=== PATIENT | male | born 1945 | race Caucasian/White ===

== ENCOUNTER → 2017-11-25 | Outpatient (CLI) | payer MEDICARE ==
--- NOTE | 2017-11-25 13:26 | CT ---
EXAMINATION TYPE: CT pelvis w con DATE OF EXAM: 11/25/2017 COMPARISON: None HISTORY: Prostate cancer CT DLP: 574.8 mGycm Automated exposure control for dose reduction was used. CONTRAST: Performed with IV Contrast, patient injected with 100 mL of Isovue 300. FINDINGS: Oral contrast does not reach distal ileum making evaluation distal bowel suboptimal. There is small b owel feces sign consistent with delayed passage of ingested material 2 colonic level. There is no randa picious small or large bowel dilatation. Amount of fecal material is somewhat prominent in the right colon. Normal-appearing appendix is ascending from cecum. Heterogeneous enlarged prostate gland with calcifications is present, more prominent hyperdensity lef t peripheral zone is seen axial image 59 could reflect area of biopsy-proven neoplasm. No capsular ir regularity or adjacent adenopathy is clearly seen. Right-sided pelvic phleboliths are present axial image 56. Bladder is mildly distended. Slight grade 1 retrolisthesis L5 on S1 is present. There is moderate to advanced disc space narrowing L5-S1 level. No suspicious focal sclerotic lesions are identified. Facet arthropathy lower lumbar sp ine is seen. IMPRESSION: NO SUSPICIOUS MASS OR ADENOPATHY TO SUGGEST METASTATIC DISEASE IS PRESENT.
--- NOTE | 2017-11-25 16:02 | NM ---
EXAMINATION TYPE: NM bone scan whole body DATE OF EXAM: 11/25/2017 COMPARISON: NONE HISTORY: Prostate cancer Delayed whole-body scanning was performed following the injection of 25.6 mCi Tc 99m MDP. Images acq uired 3.25 hours post injection. FINDINGS: There is abnormal uptake involving the anterior sixth rib. Abnormal uptake involving the right knee likely post arthritic. Abnormal uptake involving the shoulders likely post arthritic. No other areas of abnormal increased or reduced uptake. IMPRESSION: 1. Abnormal uptake which appears to be of moderate to severe intensity anterior margin right sixth ri b. This could been the basis of previous fracture rather than metastases. Correlate with rib series.
== END | disposition home or self-care (01) ==
LOC: RADNMMAIN 10:25
PROVIDERS: ATTEND Urology
DX: C61 Malignant neoplasm of prostate (principal); R94.8 Abnormal results of function studies of other organs and systems
CPT/HCPCS: 82565; 84520; 72193; 36415; 78306; A9503; Q9967

== ENCOUNTER → 2017-11-30 | Outpatient (CLI) | payer MEDICARE ==
--- NOTE | 2017-11-30 16:50 | XR ---
EXAMINATION TYPE: XR ribs RT DATE OF EXAM: 11/30/2017 COMPARISON: NONE HISTORY: Prostate cancer TECHNIQUE: 4 views FINDINGS: The right lung is clear of infiltrate. There is no sign of pleural effusion or pneumothorax . I see no rib fracture. IMPRESSION: Negative right rib exam.
== END | disposition home or self-care (01) ==
LOC: RADXRMAIN 16:27
PROVIDERS: ATTEND Urology
DX: C61 Malignant neoplasm of prostate (principal)

== ENCOUNTER → 2017-12-16 | Outpatient (CLI) | payer MEDICARE ==
[2017-12-16 12:26] LABS: Basophils % (A) 1 %; Eosinophils # (A) 0.1 k/uL (0-0.7); Eosinophils % (A) 2 %; HCT 40.3 % (39.0-53.0); HGB 13.3 gm/dL (13.0-17.5); Lymphocytes % (A) 21 %; MCH 32.7 pg (25.0-35.0); MCHC 32.9 g/dL (31.0-37.0); MCV 99.4 fL (80.0-100.0); Mean Platelet Volume 7.7; Monocytes # (A) 0.3 k/uL (0-1.0); Monocytes % (A) 7 %; Neutrophils # (A) 3.2 k/uL (1.3-7.7); Neutrophils % (A) 67 %; Platelet Count 177 k/uL (150-450); RBC 4.05 m/uL (4.30-5.90); RDW 12.7 % (11.5-15.5); WBC 4.8 k/uL (3.8-10.6)
[2017-12-16 13:02] LABS: Anion Gap 7 mmol/L; Blood Urea Nitrogen 19 mg/dL (9-20); Calcium 9.4 mg/dL (8.4-10.2); Carbon Dioxide 28 mmol/L (22-30); Chloride 106 mmol/L (98-107); Glucose 94 mg/dL (74-99); Potassium 4.5 mmol/L (3.5-5.1); Sodium 141 mmol/L (137-145)
== END ==
LOC: LABPAT 10:48
PROVIDERS: ATTEND Urology
DX: Z01.818 Encounter for other preprocedural examination (principal); Z01.812 Encounter for preprocedural laboratory examination; C61 Malignant neoplasm of prostate; R31.0 Gross hematuria; R53.83 Other fatigue
CPT/HCPCS: 80048; 85025; 87086; 93005

== ENCOUNTER 2017-12-23 10:09 | Inpatient (IN) | payer MEDICARE ==
[2017-12-19 11:14] VITALS: BMI 23.1
--- NOTE | 2017-12-21 17:00 | P.GSHP ---
History of Present Illness H&P Date: 12/21/17 Chief Complaint: Prostate cancer The patient is a 72-year-old white male with no family history of prostate cancer. His PSA level bri from 3.8 in 2016 to 9.9 recently. A repeat PSA level was 10.90. KRISTOFER revealed a nodule at the left base. He underwent a prostate ultrasound, revealing a 41 gram prostate with a left-sided hypoechoic lesion. 5 of 6 left-sided biopsies showed Yisel 7/8 adenocarcinoma involving up to 90% of the biopsy. The right-sided biopsies were negative. A computed tomography scan of the pelvis and bone scan showed no metastases. - Genitourinary (Male) Genitourinary: Reports urinary frequency - Psychiatric Psychiatric: Reports insomnia Past Medical History Past Medical History: Cancer History of Any Multi-Drug Resistant Organisms: None Reported Past Surgical History: Hernia Repair Past Anesthesia/Blood Transfusion Reactions: Motion Sickness, Postoperative Nausea & Vomiting (PONV) Smoking Status: Former smoker - Past Family History Mother Family Medical History: No Reported History Medications and Allergies Home Medications Medication Instructions Recorded Confirmed Type Acetaminophen Tab [Tylenol Tab] 650 mg PO Q4H PRN 12/19/17 12/19/17 History Ascorbic Acid [Vitamin C] 500 mg PO DAILY 12/19/17 12/19/17 History Docusate [Colace] 100 mg PO DAILY 12/19/17 12/19/17 History Multivitamin [Men's Multi-Vitamin] 1 each PO DAILY 12/19/17 12/19/17 History Allergies Allergy/AdvReac Type Severity Reaction Status Date / Time No Known Allergies Allergy Verified 12/19/17 10:20 Surgical - Exam - General well developed, well nourished, no distress - Neck no masses, trachea midline - Respiratory normal respiratory effort, clear to auscultation - Cardiovascular Rhythm: regular Abnormal Heart Sounds: no systolic murmur, no diastolic murmur, no rub, no S3 Gallop, no S4 Gallop, no click, no other - Abdomen Abdomen: soft, non tender, no guarding, no rigid, no rebound - Genitourinary normal penis with no external lesions, testicles non-tender - Rectum Rectum: normal sphincter tone, no masses, other (Prostate moderately enlarged, with nodular left base) - Psychiatric oriented to time, oriented to person, oriented to place, speech is normal, memory intact Assessment and Plan (1) Malignant neoplasm of prostate Status: Acute Code(s): C61 - MALIGNANT NEOPLASM OF PROSTATE SNOMED Code(s): 225673716 Plan: I had a lengthy discussion with the patient regarding his prostate cancer. He has elected to undergo a robotic-assisted laparoscopic prostatectomy (RALP) with bilateral pelvic lymphadenectomy. According to nomograms, there is a 33% risk of seminal vesicle invasion and a 39% risk of lymph node involvement. There is an 87% risk of extracapsular extension. The left neurovascular bundle will be widely excised, and though the right neurovascular bundle will be preserved he is aware of the likelihood of postoperative erectile dysfunction. He is aware of the possible need for adjuvant therapy. The planned procedure has been reviewed in detail with him. Potential risks were reviewed, which include anesthesia, bleeding, infection, neurovascular injury, bowel injury, lymphocele, and vesical neck contracture. He is aware of the possible need to convert this to an open procedure. The risk of post-prostatectomy urinary incontinence has been discussed in detail.
[~2017-12-23 10:09] MED LIST: DEXAMETHASONE SOD PHOSPHATE 10 MG/ML 1 ML VIAL IV ONE; HYDROmorphone 0.5 MG/0.5 ML SYRINGE IVP PRN; MIDAZOLAM 2 MG/2 ML VIAL IV PRN; ONDANSETRON 4 MG/2 ML VIAL IVP ONE; SCOPOLAMINE 1.5MG/72HR PATCH TRANSDERM ONE; ceFAZolin IN SWFI 2 GM/20 ML SYRINGE IVP ONE
[2017-12-23] MEDS: LACTATED RINGERS 1,000 ML IV SCH (10:43)
[2017-12-23] MEDS ORDERED: LIDOCAINE 1% INJ 10MG/ML (20 ML MDV) ONE (12:21)
[2017-12-23] MEDS ORDERED: NEOSTIGMINE 1 MG/ML 10 ML VIAL ONE (12:21)
[2017-12-23] MEDS ORDERED: GLYCOPYRROLATE 0.2 MG/ML 2 ML VIAL ONE (12:21)
[2017-12-23] MEDS ORDERED: SUCCINYLCHOLINE CHLORIDE 100 MG/5 ML SYR IV ONE (12:21)
[2017-12-23] MEDS ORDERED: MIDAZOLAM 2 MG/2 ML VIAL ONE (12:21)
[2017-12-23] MEDS ORDERED: ePHEDrine SULFATE/0.9% NACL/PF 50 MG/5 ML SYRINGE IV ONE (12:21)
[2017-12-23] MEDS ORDERED: HYDROmorphone (PF) 1 MG/ML ONE (12:21)
[2017-12-23] MEDS ORDERED: VECURONIUM 10 MG VIAL IV ONE (12:21)
[2017-12-23] MEDS ORDERED: PROPOFOL 10 MG/ML 20 ML VIAL IV ONE (12:21)
[2017-12-23] MEDS ORDERED: fentaNYL (PF) 50 MCG/ML 2 ML AMP ONE (12:21)
[2017-12-23] MEDS ORDERED: BUPIVACAINE (PF) 0.25% 30 ML VIAL SQ ONE ×2 (12:59→16:24)
--- NOTE | 2017-12-23 16:31 | P.OP ---
Date of Procedure: 12/23/17 Preoperative Diagnosis: Adenocarcinoma of the prostate Postoperative Diagnosis: Same Procedure(s) Performed: Right Nerve-Sparing Robotic-assisted Laparoscopic Prostatectomy (RALP) with Bilateral Pelvic Lymphadenectomy Anesthesia: MOLLY Surgeon: Damon Navarro Sales Order Coordinator #1: Orlando Diggs Estimated Blood Loss (ml): 150 IV fluids (ml): 900 Pathology: other (Prostate, seminal vesicles, bilateral pelvic lymph nodes) Condition: stable Disposition: PACU Indications for Procedure: The patient is a 72-year-old white male with no family history of prostate cancer. His PSA level bri from 3.8 in 2016 to 9.9 recently. A repeat PSA level was 10.90. KRISTOFER revealed a nodule at the left base. He underwent a prostate ultrasound, revealing a 41 gram prostate with a left-sided hypoechoic lesion. 5 of 6 left-sided biopsies showed Yisel 7/8 adenocarcinoma involving up to 90% of the biopsy. The right-sided biopsies were negative. A computed tomography scan of the pelvis and bone scan showed no metastases. Operative Findings: No evidence of extraprostatic disease Description of Procedure: The patient was taken in the operating room and placed in the dorsal lithotomy position, with his legs supported in Romain stirrups. He was carefully positioned on a beanbag for stability. The abdomen and external genitalia were prepped and draped sterilely. A Alva catheter was inserted. The Veress needle was passed through the anterior abdominal wall immediately cephalad to the umbilicus, and insufflation was performed to a pressure of 20 mm Hg. Once insufflation was performed, the Veress needle was removed and a supraumbilical incision was made, through which a 12 mm camera port was placed. Under camera guidance, 3 8 mm robotic ports were placed, 2 on the left and one on the right. An additional 12 mm port was placed on the right lateral side for use as an shipping and receiving assistant port. A 5 mm port was placed to the right of the camera port for suction. The patient was placed in Trendelenburg position, and docking was then performed to the da Eliazar system utilizing a 4-arm approach. The abdomen was examined. The sigmoid colon was mobilized out of the pelvis. The peritoneum was incised lateral to the medial umbilical ligaments bilaterally , exposing the pubis. The peritoneum was then incised across the midline, allowing the bladder flap to be taken down. The endopelvic fascia was opened bilaterally, and muscular attachments from the urogenital diaphragm were swept away from the prostate. Extended bilateral pelvic lymphadenectomies were performed in the standard fashion. The peritoneal incisions were extended in a cephalad direction, and the vas deferens were divided bilaterally. Margins of dissection were the bifurcation of the iliac vessels proximally, the circumflex iliac vein distally , the genitofemoral nerve laterally, and the obturator nerve medially. A combination of sharp and blunt dissection was used. Scarring was noted on the left, due to the patient's prior left inguinal hernia repair. Care was taken to avoid any neurovascular injury, and the use of monopolar electrocautery was avoided immediately adjacent to neurovascular structures. The lymphatic package was clipped distally. No enlarged lymph nodes were encountered. There were no complications. The vesical neck was incised transversely, down to the lumen. The Alva catheter was brought out through the anterior vesical neck incision and was used for traction. The posterior aspect of the vesical neck was incised, such that the full-thickness of the vesical neck was divided. The anterior layer of the Denonvilliers fascia was incised, exposing the vas deferens. Each were isolated and divided. Next, each of the seminal vesicles were dissected away from adjacent tissues, and vascular attachments were cauterized and divided. The posterior leaf of Denonvilliers fascia was incised transversely, allowing entry into the plane between the prostate and rectum. With lateral spreading, this plane was developed down to the apex. This exposed the lateral vascular pedicles bilaterally. These were clipped and divided in an antegrade fashion, down to the apex. The use of electrocautery was avoided to prevent thermal damage to the nerves. On the right side, the plane of dissection was immediately adjacent to the prostate to preserve the neurovascular bundle. The left neurovascular bundle was widely excised. The remaining apical attachments were swept away from the prostate. The dorsal venous complex was incised, as well as periurethral tissue. At this point, only the urethra remained intact. This was transected immediately distal to the prostatic apex using cold scissors. The specimen was placed within a specimen bag. The dorsal venous complex was sutured using a V-Loc suture in a running fashion. A second V-Loc suture was then used to place the Roman stitch, incorporating the rhabdosphincter and the edge of Denonvilliers fascia. This allowed the bladder to be taken down to the urethra, leaving the vesical neck immediately adjacent to the urethra. The vesical neck sparing procedure was not performed, and thus the vesical neck was quite large. The vesicourethral anastomosis was performed using a V-Loc suture in a running fashion, with the redundant bladder closed in a tennis racket fashion. After completing the anastomosis, an 18-Kyrgyz Alva catheter was placed and approximately 100 mL of 0.9 normal saline were instilled into the bladder. No extravasation of irrigant from the vesicourethral anastomosis was noted. Hemostasis was noted at this time to be excellent, and it was thus felt that a drain was unnecessary. However, Tisseel was sprayed over the stump of the dorsal vein, the vesicourethral anastomosis, and the vascular pedicles. The patient was returned to the supine position. Undocking was performed, and the specimen bag sutures were passed through the camera port. After removing all the ports and allowing all of the CO2 to be released from the peritoneal cavity, the camera port incision was enlarged to allow removal of the surgical specimen. The fascia of this incision was then closed using 0 Vicryl suture in an interrupted [id number] fashion. Each of the skin incisions were then closed using 4-0 Monocryl suture in a subcuticular fashion. Marcaine was injected at each of the incision sites. Dermabond was applied to each incision. The Alva catheter was connected to gravity drainage. All sponge and needle counts were correct. The patient tolerated the procedure well was taken to the recovery room in stable condition.
[2017-12-23] MEDS ORDERED: ACETAMINOPHEN TAB 325 MG TAB PO PRN (16:54)
[2017-12-23] MEDS ORDERED: HYDROmorphone 1 MG/ML 1 ML SYRINGE IVP PRN (16:54)
[2017-12-23] MEDS ORDERED: LACTATED RINGERS 1,000 ML IV ONE (17:21)
[2017-12-23] MEDS: ONDANSETRON 4 MG/2 ML VIAL IVP PRN (20:32)
[2017-12-23] MEDS: DEXTROSE 5%-0.45% NACL 1,000 ML IV SCH (20:33)
[2017-12-23] MEDS: HEPARIN SODIUM,PORCINE 5,000 UNIT/ML 1 ML VIAL SQ SCH (22:05)
[2017-12-24] MEDS: KETOROLAC 30 MG/ML 1 ML VIAL IVP PRN ×2 (03:31→08:50)
[2017-12-24] MEDS: DEXTROSE 5%-0.45% NACL 1,000 ML IV SCH ×2 (03:32→08:52)
[2017-12-24] MEDS: LACTATED RINGERS 1,000 ML IV SCH (04:42)
[2017-12-24 08:50] VITALS: RESP 16
[2017-12-24] MEDS: HEPARIN SODIUM,PORCINE 5,000 UNIT/ML 1 ML VIAL SQ SCH (08:50)
[2017-12-24] MEDS: ONDANSETRON 4 MG/2 ML VIAL IVP PRN (08:55)
[2017-12-24] MEDS ORDERED: DOCUSATE 100 MG CAP PO SCH (09:00)
--- NOTE | 2017-12-24 10:03 | P.PN ---
Progress Note - Text Progress Note Date: 12/24/17 The patient is one day post RALP for treatment of prostate cancer. He is relatively comfortable. He is afebrile but was noted to have a blood pressure in the 90s this morning when he sat at the side of the bed. His incision appears to be healing well. He has no significant genital edema. Urine output is clear. If the patient's blood pressure is stable and he is not dizzy when ambulatory he will be discharged later in the day.
[2017-12-24 14:41] VITALS: BP 98/59; PULSE 56; TEMP 97.8
--- NOTE | 2017-12-25 10:10 | P.DS ---
Providers Date of admission: 12/23/17 10:09 Expected date of discharge: 12/24/17 Attending physician: Damon Navarro Primary care physician: Arbour-Hri Hospital Course: The patient was recently diagnosed with prostate cancer and elected to be treated with radical prostatectomy. He underwent robotically-assisted laparoscopic prostatectomy on 12/23. He remained relatively comfortable postoperatively and his urine was clear. He was discharged on the first day postop with a Alva catheter in place. Procedures: Robotically-assisted laparoscopic prostatectomy 12/23/2017 Plan - Discharge Summary Discharge Rx Participant: No New Discharge Prescriptions: New Ciprofloxacin HCl [Cipro] 250 mg PO Q12HR #6 tablet Hydrocodone/Acetaminophen [Oxford 5-325] 1 - 2 each PO Q4HR PRN #6 tab PRN Reason: Pain No Action Ascorbic Acid [Vitamin C] 500 mg PO DAILY Multivitamin [Men's Multi-Vitamin] 1 tab PO DAILY Docusate [Colace] 100 mg PO DAILY Acetaminophen Tab [Tylenol Tab] 650 mg PO Q4H PRN PRN Reason: HEADACHE/PAIN Discharge Medication List Acetaminophen Tab [Tylenol Tab] 650 mg PO Q4H PRN 12/19/17 [History] Ascorbic Acid [Vitamin C] 500 mg PO DAILY 12/19/17 [History] Docusate [Colace] 100 mg PO DAILY 12/19/17 [History] Multivitamin [Men's Multi-Vitamin] 1 tab PO DAILY 12/19/17 [History] Ciprofloxacin HCl [Cipro] 250 mg PO Q12HR #6 tablet 12/23/17 [Rx] Hydrocodone/Acetaminophen [Oxford 5-325] 1 - 2 each PO Q4HR PRN #6 tab 12/23/17 [ Rx] Follow up Appointment(s)/Referral(s): Damon Navarro MD [STAFF PHYSICIAN] - 2 Weeks (office closed, please call Tuesday for follow-up appointment) Patient Instructions/Handouts: Alva Catheter Placement and Care (DC), Robot Assisted Laparoscopic Prostatectomy (DC), Urinary Leg Bag (GEN) Activity/Diet/Wound Care/Special Instructions: Diet as tolerated. Drink plenty of fluids. Discharge home with Alva catheter. Okay to shower. No lifting, driving, or strenuous activities. Instruct patient to begin taking ciprofloxacin one day prior to his follow-up appointment. Discharge Disposition: HOME SELF-CARE Pending Studies Pending Results: Pathology report from surgery
--- NOTE | 2017-12-30 20:06 | CDI ---
Documentation Clarification Form Date: 12/30/2017 7:56:45 PM From: CE Garay; Lulu Beaulieu Sausage Machine Operator Phone: If you have a question about this query, please contact Lulu Beaulieu Sausage Machine Operator at [phone] between 8am and 5pm. Admit Date: 12/23/2017 10:09:00 AM Patient Name: Mike Rodas Visit Number: [id number] Discharge Date: 12/24/2017 ATTENTION: The Clinical Documentation Specialists (CDI) and [facility] Coding Staff appreciate your assistance in clarifying documentation. Please respond to the clarification below the line at the bottom and electronically sign. The CDI & [facility] Coding staff will review the response and follow-up if needed. Please note: Queries are made part of the Legal Health Record. If you have any questions, please contact the author of this message via ITS. Damon Rivas MD The final diagnosis of the pathology report states: One lymph node positive for metastatic carcinoma. Documentation states:Lymph node Patient history/risk factors: Prostate adenocarcinoma. Clinical Indicators: Elevated PSA, urinary frequency Treatment: Prostatectomy In your professional opinion, do you agree with the pathology report specifying lymph node as metastatic carcinoma? Yes No Other (please specify) Unable to determine Yes MTDD
== END 2017-12-24 16:17 | disposition home or self-care (01) | DRG 707 ==
LOC: 2ORMAIN 10:09 → 4SSUR 16:42
PROVIDERS: ADMIT Urology; ATTEND Urology
PROC: 8E0W4CZ Robotic Assisted Procedure of Trunk Region, Percutaneous Endoscopic Approach (ICD-10-PCS; principal; 2017-12-23 11:25)
PROC: 0VT04ZZ Resection of Prostate, Percutaneous Endoscopic Approach (ICD-10-PCS; principal; 2017-12-23 11:25)
PROC: 07BC4ZX Excision of Pelvis Lymphatic, Percutaneous Endoscopic Approach, Diagnostic (ICD-10-PCS; principal; 2017-12-23 11:25)
DX: C61 Malignant neoplasm of prostate (principal); C77.5 Secondary and unspecified malignant neoplasm of intrapelvic lymph nodes; G47.00 Insomnia, unspecified; Z87.891 Personal history of nicotine dependence; R35.0 Frequency of micturition
CPT/HCPCS: 88305; 88307; 88309

== ENCOUNTER → 2018-02-09 | Outpatient (CLI) | payer MEDICARE | LOC: LABWHC1 15:25 | PROVIDERS: ATTEND Urology | DX: C61 Malignant neoplasm of prostate (principal) | CPT/HCPCS: 36415; 84153 ==

== ENCOUNTER → 2018-05-22 | Outpatient (CLI) | payer MEDICARE | END | disposition home or self-care (01) | LOC: LABWHC1 10:19 | PROVIDERS: ATTEND Urology | DX: C61 Malignant neoplasm of prostate (principal) | CPT/HCPCS: 36415; 84153; 84403 ==

== ENCOUNTER → 2018-06-05 | Outpatient (CLI) | payer MEDICARE | LOC: LABWHC1 09:56 | PROVIDERS: ATTEND Ophthalmology | DX: G45.3 Amaurosis fugax (principal) | CPT/HCPCS: 36415; 85652; 86140 ==

== ENCOUNTER 2018-07-19 08:58 | Day surgery (SDC) | payer MEDICARE ==
[2018-07-14 13:44] VITALS: BMI 24.3
[~2018-07-19 08:58] MED LIST changes: -DEXAMETHASONE SOD PHOSPHATE 10 MG/ML 1 ML VIAL IV ONE; -HYDROmorphone 0.5 MG/0.5 ML SYRINGE IVP PRN; +LACTATED RINGERS 1,000 ML IV SCH; -MIDAZOLAM 2 MG/2 ML VIAL IV PRN; -ONDANSETRON 4 MG/2 ML VIAL IVP ONE; -SCOPOLAMINE 1.5MG/72HR PATCH TRANSDERM ONE; -ceFAZolin IN SWFI 2 GM/20 ML SYRINGE IVP ONE
[2018-07-19 09:22] VITALS: TEMP 97.8
[2018-07-19] MEDS ORDERED: LIDOCAINE 1% 20 ML VIAL (10MG/ML) FOR IV START INTRADERMA ONE (09:28)
--- NOTE | 2018-07-19 09:46 | P.GSHP ---
History of Present Illness H&P Date: 07/19/18 CHIEF COMPLAINT: Colon screen HISTORY OF PRESENT ILLNESS: The patient is a 73-year-old male who presents for colon screen. Lower endoscopy was offered for further evaluation and management. PAST MEDICAL HISTORY: Please see list. PAST SURGICAL HISTORY: Please see list. MEDICATIONS: Please see list. ALLERGIES: Please see list. SOCIAL HISTORY: No illicit drug use FAMILY HISTORY: No reports of Crohn disease or ulcerative colitis. REVIEW OF ORGAN SYSTEMS: CONSTITUTIONAL: No reports of fevers or chills. PHYSICAL EXAM: VITAL SIGNS: Stable GENERAL: Well-developed pleasant in no acute distress. HEENT: No scleral icterus. Extraocular movements grossly intact. Moist buccal mucosa. NECK: Supple without lymphadenopathy. CHEST: Unlabored respirations. Equal bilateral excursions. CARDIOVASCULAR: Regular rate and rhythm. Distal 2+ pulses. ABDOMEN: Soft, nontender, nondistended. MUSCULOSKELETAL: No clubbing, cyanosis, or edema. ASSESSMENT: 1. Colon screen. PLAN: 1. Recommend proceeding with a lower endoscopy Past Medical History Past Medical History: Cancer, Prostate Disorder Additional Past Medical History / Comment(s): blood in stool, prostate cancer History of Any Multi-Drug Resistant Organisms: None Reported Past Surgical History: Hernia Repair, Prostate Surgery Past Anesthesia/Blood Transfusion Reactions: Postoperative Nausea & Vomiting (PONV) Smoking Status: Former smoker - Past Family History Mother Family Medical History: No Reported History Medications and Allergies Home Medications Medication Instructions Recorded Confirmed Type Ascorbic Acid [Vitamin C] 500 mg PO DAILY 12/19/17 07/19/18 History Multivitamin [Men's Multi-Vitamin] 1 tab PO DAILY 12/19/17 07/19/18 History Calcium Carbonate [Calcium] 600 mg PO BID 07/14/18 07/19/18 History Allergies Allergy/AdvReac Type Severity Reaction Status Date / Time No Known Allergies Allergy Verified 07/19/18 09:15 Surgical - Exam Vital Signs Temp Pulse Resp BP Pulse Ox 97.8 F 60 16 128/69 96 07/19/18 09:21 07/19/18 09:21 07/19/18 09:21 07/19/18 09:21 07/19/18 09:21
[2018-07-19] MEDS ORDERED: PROPOFOL 10 MG/ML 20 ML VIAL IV ONE (09:47)
--- NOTE | 2018-07-19 10:21 | P.PCN ---
Date of Procedure: 07/19/18 Description of Procedure: PREOPERATIVE DIAGNOSIS: Colonoscopy screening POSTOPERATIVE DIAGNOSIS: Colonoscopy screening Multiple colon polyps. Internal hemorrhoids, grade 2 External hemorrhoids, grade 2 OPERATION: Colonoscopy to the ileocecal valve and appendiceal orifice. Colonoscopy with hot snare polypectomy Colonoscopy with multiple cold forceps biopsies. SURGEON: Preeti Lora MD. ANESTHESIA: MAC. INDICATIONS: The patient is a 73-year-old male who presents for colonoscopy screening. Last colonoscopy 10 years ago. Benefits and risks were described and informed consent was obtained. DESCRIPTION OF PROCEDURE: The patient had undergone Gatorade, MiraLAX and Dulcolax prep. He had been brought into the operating room and laid in the left lateral decubitus position. The prostate was smooth and without abnormalities. After adequate intravenous sedation, the rectum was examined with 2% lidocaine jelly. External hemorrhoids were encountered. The rectal tone was within normal limits. No lesions were palpated in the rectal vault. An Olympus colonoscope was advanced until the ileocecal valve and appendiceal orifice were clearly viewed. The prep was fair with visualization of the mucosal folds. The scope was removed with visualization of each mucosal fold. No scattered diverticulosis was encountered. Multiple colonic polyps were found and cold forcep biopsy or snare polypectomy. No evidence of focal colitis was found. Retroflexion of the scope demonstrated grade 2 internal hemorrhoids without active bleeding or inflammation. The colon was desufflated. The patient had tolerated the procedure well. Withdrawal time was over 6 minutes. FINDINGS: Aronchick preparation quality scale 1 (1-5) Internal hemorrhoids, grade 2 External hemorrhoids, grade 2. No arteriovenous malformations. Removal of 3 polyps: - Snare polypectomy 15 cm from the anal verge, 5 mm tubulovillous adenoma polyp, rectum - Cold forceps biopsy at 20 cm from the anal verge, 4 mm polyp, sigmoid colon - Cold forceps biopsy at 25 cm from the anal verge, 4 mm polyp, sigmoid colon No focal colitis. RECOMMENDATIONS: Repeat colonoscopy 5 years, 2023 Plan - Discharge Summary New Discharge Prescriptions: No Action Ascorbic Acid [Vitamin C] 500 mg PO DAILY Multivitamin [Men's Multi-Vitamin] 1 tab PO DAILY Calcium Carbonate [Calcium] 600 mg PO BID Discharge Medication List Ascorbic Acid [Vitamin C] 500 mg PO DAILY 12/19/17 [History] Multivitamin [Men's Multi-Vitamin] 1 tab PO DAILY 12/19/17 [History] Calcium Carbonate [Calcium] 600 mg PO BID 07/14/18 [History] Follow up Appointment(s)/Referral(s): Preeti Lora MD [STAFF PHYSICIAN] - 07/25/18 Patient Instructions/Handouts: Hemorrhoids (DC), Colorectal Polyps (DC) Activity/Diet/Wound Care/Special Instructions: Repeat colonoscopy in 5 years, 2023 Discharge Disposition: HOME SELF-CARE
[2018-07-19 10:43] VITALS: BP 110/65; PULSE 54; RESP 18
== END 2018-07-19 11:16 | disposition home or self-care (01) ==
LOC: ORWHC2ENDO 08:58
PROVIDERS: ATTEND Surgery Plastic and Reconstructive Surgery
DX: Z12.11 Encounter for screening for malignant neoplasm of colon (principal); K63.5 Polyp of colon; K64.4 Residual hemorrhoidal skin tags; K64.8 Other hemorrhoids; Z85.46 Personal history of malignant neoplasm of prostate; Z87.891 Personal history of nicotine dependence
CPT/HCPCS: 88305; 45380; 45385; J2704

== ENCOUNTER → 2018-08-14 | Outpatient (CLI) | payer MEDICARE | END | disposition home or self-care (01) | LOC: LABWHC1 12:26 | PROVIDERS: ATTEND Urology | DX: C61 Malignant neoplasm of prostate (principal) | CPT/HCPCS: 36415; 84153; 84403 ==

== ENCOUNTER → 2018-09-28 | Outpatient (CLI) | payer MEDICARE ==
--- NOTE | 2018-09-28 14:44 | CT ---
EXAMINATION TYPE: CT chest wo con DATE OF EXAM: 09/28/2018 COMPARISON: None HISTORY: Cough and Wheezing CT DLP: 263.10 mGycm. Automated Exposure Control for Dose Reduction was Utilized. TECHNIQUE: CT scan of the thorax is performed without IV contrast. FINDINGS: LUNGS: Large masslike consolidation seen in the left lower lobe anteriorly and laterally measuring 6. 7 x 5.4 x 6.8 cm in AP by transverse by craniocaudad dimension. Small area of central cavitation jaelyn uring up to 1.4 cm. There is surrounding groundglass attenuation throughout the left lower lobe paren chyma. Otherwise, the remaining lobes are clear. No evidence of pleural effusion. No pneumothorax. MEDIASTINUM: Lack of IV contrast is noted to limit evaluation for mediastinal and especially hilar ad enopathy. There are no definitive greater than 1 cm hilar or mediastinal lymph nodes, but there is le ft hilar prominence. No cardiomegaly or pericardial effusion is seen. Ascending thoracic aorta is e nlarged measuring up to 4.6 cm. OTHER: Low-attenuation liver lesion in the left hepatic lobe. IMPRESSION: Left lower lobe cavitary masslike consolidation with surrounding pneumonitis. Findings may be on the basis of pulmonary malignancy versus pneumonia. Correlation with patient WBC is recommended. Follow-u p until resolution. Ascending thoracic aortic aneurysm.
== END | disposition home or self-care (01) ==
LOC: RADCTMAIN 13:37
PROVIDERS: ATTEND Internal Medicine Pulmonary Disease
DX: C61 Malignant neoplasm of prostate (principal); I71.2 Thoracic aortic aneurysm, without rupture; R91.8 Other nonspecific abnormal finding of lung field
CPT/HCPCS: 71250

== ENCOUNTER → 2018-10-14 | Outpatient (CLI) | payer MEDICARE ==
--- NOTE | 2018-10-16 09:40 | PE ---
EXAMINATION TYPE: PET CT fusion skull to thigh DATE OF EXAM: 10/14/2018 COMPARISON: CT dated 09/28/2018 and nuclear medicine bone scan dated 11/25/2017 HISTORY: Left sided lung cancer with recent lung biopsy on 10/05/2018. No prior chemotherapy or radiat ion for the lung cancer. History includes prostate cancer with abnormal uptake of the anterior margin of the right sixth rib on prior nuclear medicine bone scan dated 11/25/2017 pelvis favored to repres ent prior fracture versus less likely metastasis. TECHNIQUE: Following the intravenous administration of 11.497 mCi of F-18 FDG, whole body images are performed from the skull base to the midthigh. Images are reviewed on the computer in the coronal, axial, and sagittal planes. Reconstructed rotating images are created on independent workstation and reviewed on the computer. A localization and attenuation correction CT is performed in conjunction with the PET scan. SCAN: Initial strategy FINDINGS: Mediastinal background: 2.29 Abdominal background: 3.22 SKULL BASE AND NECK: No suspicious hypermetabolic uptake. CHEST, MEDIASTINUM, AND HILAR REGION: There is marked hypermetabolic uptake of the cavitary left lowe r lobe mass measuring approximately 6.7 x 4.4 x 6.8 cm as seen on the prior exam. This has a maximum SUV of 23.91. Groundglass attenuation surrounds the cavitary mass involving the entirety of the left lower lobe other than relative sparing of the superior segment. Scattered areas of subsegmental atele ctasis are seen on the right. Prominent but nonenlarged precarinal lymph node measures 8 mm in short axis and is not hypermetabolic. No other borderline lymph nodes are seen nor enlarged lymph nodes or hypermetabolic lymph nodes. There is a slightly enlarged aorticopulmonary window lymph node that measures 1.2 cm on series 3 imag e 89 and has a maximum SUV similar to mediastinal background of 2.25, just below the seminal backgrou nd. ABDOMEN AND PELVIS: Incidentally noted amorphous density within the right gluteal subcutaneous tissue s has a maximum SUV of 2.15, below abdominal background and may represent site of subcutaneous inject ion or recent injury. This is seen on series 2 image 221. No suspicious uptake is seen within the abd omen. Hypoattenuated hepatic lesion of the left lobe has a maximum SUV of 2.83, below mediastinal leti kground and is favored to represent a benign lesion such as a cyst. OSSEOUS STRUCTURES: No suspicious hypermetabolic uptake. OTHER CT: There is redemonstration of aneurysmal dilatation of the thoracic aorta as the ascending th oracic aorta measures approximately 4.6 cm. Moderate to severe coronary artery calcifications are see n. Scleral calcifications are incidentally noted. Paranasal sinuses and mastoid air cells appear well aerated. No pericardial effusion. Small hiatal hernia is seen. Old fracture deformity is noted of th e anterior right sixth rib although subtle. Mild to moderate degenerative changes of the spine and hi ps. Cecum is noted to be low-lying within the pelvis. Moderate atheromatous changes of the thoracic a nd abdominal aorta and their branches. Hypoattenuated hepatic lesion on series 3 image 132 years 1.2 cm and has attenuation of a simple cyst. This is hypometabolic and again favored to represent a benig n cyst although incompletely evaluated without contrast. IMPRESSION: 1. Left lower lobe cavitary mass with continued evidence of surrounding pneumonitis involving nearly the entirety of the left lower lobe is most compatible with cavitary malignant neoplasm as this demon strates a maximum SUV of 23.91. 2. No current pathologic mediastinal adenopathy with only a solitary borderline mediastinal lymph nod e that is mildly enlarged having an SUV just below the seminal background (aortic window node measuri ng 1.2 cm in short axis). 3. No findings to suspect infradiaphragmatic metastasis or supraclavicular metastasis. No contralater al adenopathy, no pleural effusion, and no additional 0.4. Redemonstration of aneurysmal dilatation o f the ascending thoracic aorta measuring 4.6 cm. 4. Hypometabolic 1.2 cm left hepatic lobe lesion highly favored to represent a benign cyst. Suspiciou s pulmonary nodules.
== END | disposition home or self-care (01) ==
LOC: RADPETMAIN 08:25
PROVIDERS: ATTEND Internal Medicine Pulmonary Disease
DX: J18.9 Pneumonia, unspecified organism (principal); I71.2 Thoracic aortic aneurysm, without rupture; K76.89 Other specified diseases of liver
CPT/HCPCS: 78815; A9552

== ENCOUNTER → 2018-10-30 | Outpatient (CLI) | payer MEDICARE ==
--- NOTE | 2018-10-30 22:18 | MR ---
EXAMINATION TYPE: MR brain wo/w con DATE OF EXAM: 10/30/2018 COMPARISON: Correlation PET CT 10/14/2018 HISTORY: 73-year-old male Headaches, Lung ca Sep 2018 TECHNIQUE: Multiplanar, multisequence images of the brain and brainstem were acquired before and aft er administration of 7.5 mL IV Gadavist. Diffusion weighted imaging is performed. FINDINGS: Some focal susceptibility artifact along the right lateral convexity, possible intracranial pressure monitor or some metallic foreign body material. Clinically correlate. No evidence for acute infarction, hemorrhage, mass, mass effect, midline shift, herniation, effacemen t of basal cisterns, or extra-axial fluid collection. The ventricles and sulci are age-appropriate. Major intracranial flow voids are intact. There is a dominant left vertebral artery. T2/FLAIR weighted sequences show minimal burden of bright white matter change in the subcortical charlie ons of both cerebral hemispheres. Nonspecific findings likely representing mild changes of chronic sm all vessel ischemic disease. Midline structures demonstrate normal morphology. The craniocervical junction is normal. Post contrast images demonstrate no evidence of pathologic enhancement. Dural venous sinuses are pat ent. Scattered mild mucosal thickening ethmoid air cells. Globes are intact. IMPRESSION: 1. Focal susceptibility artifact along the right lateral convexity could represent some type of metal lic device or foreign body. Clinically correlate. 2. No acute intracranial abnormality seen. No enhancing intracranial lesions. 3. Mild scattered burden of T2 bright white matter change could reflect chronic small vessel ischemic disease or changes related to chronic migraines in the appropriate clinical setting.
== END | disposition home or self-care (01) ==
LOC: RADMRIMAIN 12:08
PROVIDERS: ATTEND Internal Medicine Hematology & Oncology
DX: C34.32 Malignant neoplasm of lower lobe, left bronchus or lung (principal); R90.89 Other abnormal findings on diagnostic imaging of central nervous system; R51 Headache
CPT/HCPCS: 70553; A9585

== ENCOUNTER → 2018-11-17 | Outpatient (CLI) | payer MEDICARE | END | disposition home or self-care (01) | LOC: LABWHC1 13:54 | PROVIDERS: ATTEND Urology | DX: C61 Malignant neoplasm of prostate (principal) | CPT/HCPCS: 36415; 84153 ==

== ENCOUNTER → 2019-02-13 | Outpatient (CLI) | payer MEDICARE ==
--- NOTE | 2019-02-13 11:55 | CT ---
EXAMINATION TYPE: CT ChestAbdPelvis w con DATE OF EXAM: 02/13/2019 COMPARISON: PET CT October 14, 2018 HISTORY: Malignant neoplasm of lower lobe, left lung (lobectomy) CT DLP: 820.7 mGycm. Automated Exposure Control for Dose Reduction was Utilized. CONTRAST: CT scan of the thorax, abdomen and pelvis is performed with IV Contrast, patient injected with 80 mL of Isovue 300. FINDINGS: LUNGS: There is left lower lobe partial pneumonectomy changes with surgical sutures and left-sided vo lume loss along with posterior left basilar linear scarring. There is small left pleural fluid collec tion immediately. No new nodules or masses. Slight hyperexpansion to right long. MEDIASTINUM: There are no greater than 1 cm hilar or mediastinal lymph nodes. Surgical clips left hil ar level. No cardiomegaly or pericardial effusion is seen. Coronary artery calcification is redemon strated which is noted marked of underlying coronary artery disease. Ascending aorta measures up to 4 .2 cm in diameter image 28. No significant change from prior. LIVER/GB: Stable roughly 1 cm hypodense lesion left hepatic lobe presumed benign simple thin-walled c yst axial image 52. PANCREAS: No significant abnormality is seen. SPLEEN: No significant abnormality is seen. ADRENALS: No significant abnormality is seen. KIDNEYS: No significant abnormality is seen. BOWEL: No significant abnormality is seen. GENITAL ORGANS: Prostate is not visualized and may be surgically absent. Scattered pelvic phleboliths . LYMPH NODES: No greater than 1cm abdominal or pelvic lymph nodes are appreciated. OSSEOUS STRUCTURES: Slight grade 1 retrolisthesis L5 on S1. Moderate disc space narrowing L5-S1 level . OTHER: No significant additional abnormality is seen. IMPRESSION: Interval successful treatment of left lung neoplasm. No new suspicious mass or adenopathy to suggest neoplastic recurrence.
== END | disposition home or self-care (01) ==
LOC: RADCTMAIN 09:37
PROVIDERS: ATTEND Internal Medicine Hematology & Oncology
DX: C34.32 Malignant neoplasm of lower lobe, left bronchus or lung (principal)
CPT/HCPCS: 36415; 71260; 74177; 82565; 84520

== ENCOUNTER → 2019-06-05 | Outpatient (CLI) | payer MEDICARE ==
[2019-06-05 12:48] LABS: African American GFR (CKD) >90 (>60 ml/min/1.73 sqM); Blood Urea Nitrogen 14 mg/dL (9-20); Non-African American GFR(CKD) 83 (>60 ml/min/1.73 sqM)
--- NOTE | 2019-06-06 19:03 | CT ---
EXAMINATION TYPE: CT ChestAbdPelvis w con DATE OF EXAM: 06/05/2019 COMPARISON: 02/13/19 CT chest, abdomen and pelvis and PET CT dated 10/14/18 HISTORY: lung cancer follow up . Partial pneumonectomy of the left lower lobectomy. CT DLP: 770.2 mGycm. Automated Exposure Control for Dose Reduction was Utilized. CONTRAST: CT scan of the thorax, abdomen and pelvis is performed with IV Contrast, patient injected with 100 mL of Isovue 300. The entirety of the pelvis is not imaged. The patient could be brought back for addit ional images. FINDINGS: LUNGS: The lungs are grossly clear, there is no concerning parenchymal mass or nodule identified. Linda ear pleural-parenchymal scarring is seen at the left lung base. Pleural thickening has decreased in c aliber in comparison to the prior measuring up to 1.0 cm and previously measuring up to 2.2 cm. Redem onstration of compensatory hyperinflation of the right lung and slight leftward mediastinal shift sec ondary to left-sided volume loss. There is no pleural effusion or pneumothorax seen. The tracheobron chial tree is patent. MEDIASTINUM: There are no greater than 1 cm hilar or mediastinal lymph nodes. Moderate to severe cor onary artery calcifications of the left anterior descending coronary artery are seen. The ascending t horacic aorta is again aneurysmal measuring 4.3 cm. This is stable from the prior. No pericardial eff usion is seen. LIVER/GB: Hepatic parenchyma is diffusely hypoattenuated in comparison to that of the spleen, most co mmonly seen in hepatic steatosis. This finding limits evaluation for hepatic masses. No intrahepatic biliary ductal dilatation. Thin-walled probable hepatic cysts again measures approximately 1.0 cm and the left hepatic lobe on image 52. No radiopaque calculi in the gallbladder on CT. PANCREAS: Slight bulbous contour of the pancreas is stable and presumably congenital. SPLEEN: No splenomegaly. ADRENALS: No new nodules or thickening. KIDNEYS: 1.1 cm right lower pole exophytic benign renal cyst is seen. No hydronephrosis or nephrolith iasis of either kidney. BOWEL: No dilated large or small bowel is seen. LYMPH NODES: No greater than 1cm abdominal or pelvic lymph nodes are appreciated. OSSEOUS STRUCTURES: Slight retrolisthesis is redemonstrated of L5 on S1 with degenerative disc diseas e of the thoracic and lumbar spine. IMPRESSION: Imaging was only performed to the aortoiliac bifurcation and the low pelvis was not inclu ded in the images submitted. The patient could be brought back for additional images added to this ex amination at the inferior margin of the pelvis is of clinical interest. In the visualized portions of the chest, abdomen, and pelvis no new evidence of visceral or osseous metastasis is seen. No new chrissie nopathy.
== END | disposition home or self-care (01) ==
LOC: RADCTMAIN 11:26
PROVIDERS: ATTEND Internal Medicine Hematology & Oncology
DX: C34.32 Malignant neoplasm of lower lobe, left bronchus or lung (principal)
CPT/HCPCS: 82565; 84520; 71260; 74177; 36415; Q9967

== ENCOUNTER → 2019-08-15 | Outpatient (CLI) | payer MEDICARE | END | disposition home or self-care (01) | LOC: LABWHC1 10:32 | PROVIDERS: ATTEND Urology | DX: C61 Malignant neoplasm of prostate (principal) | CPT/HCPCS: 36415; 84153; 84403 ==

== ENCOUNTER → 2019-09-11 | Outpatient (CLI) | payer MEDICARE ==
--- NOTE | 2019-09-11 15:02 | CT ---
EXAMINATION TYPE: CT ChestAbdPelvis w con DATE OF EXAM: 09/11/2019 COMPARISON: Prior CT 06/05/2019 HISTORY: follow up lung and prostate cancer CT DLP: 1496 mGycm Automated exposure control for dose reduction was used. CONTRAST: CT scan of the chest, abdomen and pelvis is performed with Oral Contrast and with IV Contrast, patien t injected with 100 mL of Isovue 300. FINDINGS: LUNGS: The lungs are grossly clear, there is no concerning parenchymal mass or nodule identified. T here is no pleural effusion or pneumothorax seen. The tracheobronchial tree is patent. There are sta ble postop changes. There is volume loss in the left hemithorax. MEDIASTINUM: There are no greater than 1 cm hilar or mediastinal lymph nodes. No pericardial effusi on is seen. There are dense coronary artery calcifications. AORTA: Root of the aorta measures approximately 4.1 cm, ascending aorta is 4.2 cm, proximal descendi ng aorta 3.6 cm. OTHER: No additional significant abnormality is seen. LIVER/GB: No significant interval change is appreciated. PANCREAS: No significant abnormality is seen. SPLEEN: No significant abnormality is seen. ADRENALS: No significant abnormality is seen. KIDNEYS: No significant interval change is seen. REPRODUCTIVE ORGANS: Prostate is not seen, correlate for prostatectomy BOWEL: No significant abnormality is seen. FREE AIR: No Free Air visible. ASCITES: None seen. RETROPERITONEAL ADENOPATHY: No retroperitoneal adenopathy is seen. LYMPH NODES: No greater than 1 cm abdominal or pelvic lymph nodes are appreciated. URINARY BLADDER: No significant abnormality is seen. PELVIC ADENOPATHY: None visualized. OSSEOUS STRUCTURES: No significant abnormality is seen. IMPRESSION: Stable exam, there is no suspicious abnormality evident. Aortic aneurysm shows a stable a ppearance. Postop changes.
== END ==
LOC: RADCTMAIN 11:47
PROVIDERS: ATTEND Internal Medicine Hematology & Oncology
DX: C34.32 Malignant neoplasm of lower lobe, left bronchus or lung (principal); I71.9 Aortic aneurysm of unspecified site, without rupture; Z98.890 Other specified postprocedural states
CPT/HCPCS: 82565; 84520; 71260; 74177; 36415; Q9967

== ENCOUNTER → 2019-12-07 | Outpatient (CLI) | payer MEDICARE ==
--- NOTE | 2019-12-07 13:32 | CT ---
EXAMINATION TYPE: CT ChestAbdPelvis w con DATE OF EXAM: 12/07/2019 COMPARISON: CT 09/11/2019 HISTORY: Prostate and lung cancer CT DLP: 947.9 mGycm Automated exposure control for dose reduction was used. CONTRAST: CT scan of the chest, abdomen and pelvis is performed with Oral Contrast and with IV Contrast, patien t injected with 100 mL of Isovue 300. FINDINGS: LUNGS: Postop changes with volume loss in the left hemithorax again noted MEDIASTINUM: There are no greater than 1 cm hilar or mediastinal lymph nodes. There are coronary nika ry calcifications. No pericardial effusion is seen. AORTA: Nerve root is borderline enlarged at 4 cm. OTHER: No additional significant abnormality is seen. LIVER/GB: No significant interval change is appreciated. PANCREAS: No significant abnormality is seen. SPLEEN: No significant abnormality is seen. ADRENALS: No significant abnormality is seen. KIDNEYS: No significant abnormality is seen. REPRODUCTIVE ORGANS: No gross abnormality seen. BOWEL: No significant abnormality is seen. FREE AIR: No Free Air visible. ASCITES: None seen. RETROPERITONEAL ADENOPATHY: No retroperitoneal adenopathy is seen. LYMPH NODES: No greater than 1 cm abdominal or pelvic lymph nodes are appreciated. URINARY BLADDER: No significant abnormality is seen. PELVIC ADENOPATHY: None visualized. OSSEOUS STRUCTURES: Degenerative disc change present in the lumbar spine. There is facet arthropathy , anterolisthesis grade 1 L4-51. IMPRESSION: Aortic aneurysm. No significant change.
== END | disposition home or self-care (01) ==
LOC: RADCTMAIN 10:22
PROVIDERS: ATTEND Internal Medicine Hematology & Oncology
DX: C34.32 Malignant neoplasm of lower lobe, left bronchus or lung (principal); I71.9 Aortic aneurysm of unspecified site, without rupture
CPT/HCPCS: 82565; 84520; 71260; 74177; 36415; Q9967

== ENCOUNTER → 2020-04-09 | Outpatient (CLI) | payer MEDICARE ==
--- NOTE | 2020-04-09 12:48 | CT ---
EXAMINATION TYPE: CT ChestAbdPelvis w con DATE OF EXAM: 04/09/2020 COMPARISON: 12/07/2019 HISTORY: Lung and prostate cancer-different cancers CT DLP: 1498 mGycm Automated exposure control for dose reduction was used. CONTRAST: CT scan of the chest, abdomen and pelvis is performed with Oral Contrast and with IV Contrast, patien t injected with 100 mL of Isovue 300. FINDINGS: LUNGS: Basilar subsegmental atelectasis at the left lung base favored over infiltrate. No sizable pul monary nodule. No pleural effusion or pneumothorax.. MEDIASTINUM: Mild aneurysmal dilation of the ascending aorta measuring 4.3 cm and previously measurin g 4.2 cm. Coronary artery calcification noted. OTHER: No additional significant abnormality is seen. LIVER/GB: Stable hypodensity within the left lobe the liver too small to characterize but likely rela beulah to cyst. PANCREAS: No significant abnormality is seen. SPLEEN: No significant abnormality is seen. ADRENALS: No significant abnormality is seen. KIDNEYS: Small exophytic lesion extending off the lower pole of the right kidney measuring approximat feliberto 5 Hounsfield units compatible with simple cyst and stable from previous.. BOWEL: No significant abnormality is seen. LYMPH NODES: No greater than 1 cm abdominal or pelvic lymph nodes are appreciated. OSSEOUS STRUCTURES: Hypertrophic and degenerative changes spine with grade 1 anterolisthesis L4 on L5 . Multilevel degenerative disc disease. PELVIS: Bladder distends normally. No wall thickening. No free fluid or adenopathy. OTHER: Aorta of normal caliber. IMPRESSION: 1. Stable CT scan demonstrating no evidence of metastases. 2. Ascending aortic aneurysm measuring 4.3 cm and producing measuring 4.2 cm..
== END | disposition home or self-care (01) ==
LOC: RADCTMAIN 10:31
PROVIDERS: ATTEND Internal Medicine Hematology & Oncology
DX: I71.2 Thoracic aortic aneurysm, without rupture (principal); C34.32 Malignant neoplasm of lower lobe, left bronchus or lung
CPT/HCPCS: 82565; 84520; 71260; 74177; 36415; Q9967 ×2

== ENCOUNTER → 2020-05-16 | Outpatient (CLI) | payer MEDICARE ==
[2020-05-16 23:29] LABS: Prostate Specific Antigen <0.1 ng/mL (0.0-6.5)
== END | disposition home or self-care (01) ==
LOC: LABWHC1 13:16
PROVIDERS: ATTEND Urology
DX: C61 Malignant neoplasm of prostate (principal)
CPT/HCPCS: 36415; 84153; 84403

== ENCOUNTER → 2020-08-08 | Outpatient (CLI) | payer MEDICARE ==
--- NOTE | 2020-08-08 13:14 | CT ---
EXAMINATION TYPE: CT ChestAbdPelvis w con DATE OF EXAM: 08/08/2020 INDICATION: Lung cancer COMPARISON: 04/09/2020 CT DLP: 1537 mGycm CONTRAST: Performed with Oral Contrast and with IV Contrast, patient injected with 100 ml mL of Isovue 300. TECHNIQUE: Axial images at 5 mm thick sections. Reconstructed images in the coronal plane. Delayed images through the kidneys. FINDINGS: CT CHEST: Portion of the thyroid visualized is normal. No suspicious lung nodules or focal infiltrates are present. No enlarged mediastinal or hilar adenopathy is evident. The ascending aorta diameter at the level of the main pulmonary artery is 4.4 cm. The main pulmonary artery diameter at the bifurcation is 2.7 cm. Coronary artery calcifications present. CT ABDOMEN: Liver: Normal Spleen: Normal Pancreas: Normal Adrenal glands: The adrenal glands are normal. Gallbladder: Normal Kidneys: No masses are evident. No hydronephrosis is present. No cysts are present. Delayed images were obtained through the kidneys, which remain unremarkable. Aorta: Vascular calcification is within the aorta. Inferior vena cava: Normal. CT PELVIS: Loops of bowel within the abdomen and pelvis are normal. There are loops of bowel which are incom pletely distended or lack oral contrast limiting their evaluation. Appendix: Normal as visualized. Urinary bladder: Normal. Genitourinary structures: Prostate is not identified. Osseous structures: No suspicious lytic or sclerotic lesions. Facet degenerative changes are present. IMPRESSIONS: 1. Ascending thoracic aortic aneurysm measuring 4.4 cm this may be 2 mm more than comparison. 2. No suspicious change to suggest recurrent or metastatic lung cancer.
== END | disposition home or self-care (01) ==
LOC: RADCTMAIN 10:22
PROVIDERS: ATTEND Internal Medicine Hematology & Oncology
DX: C34.32 Malignant neoplasm of lower lobe, left bronchus or lung (principal); I71.2 Thoracic aortic aneurysm, without rupture
CPT/HCPCS: 82565; 84520; 71260; 74177; 36415; Q9967

== ENCOUNTER → 2020-10-23 | Outpatient (CLI) | payer MEDICARE | END | disposition home or self-care (01) | LOC: LABWHC1 14:40 | PROVIDERS: ATTEND Urology | DX: C61 Malignant neoplasm of prostate (principal) | CPT/HCPCS: 36415; 84153; 84403 ==

== ENCOUNTER → 2020-12-12 | Outpatient (CLI) | payer MEDICARE ==
[2020-12-12 10:47] LABS: African American GFR (CKD) >90 (>60 ml/min/1.73 sqM); Blood Urea Nitrogen 19 mg/dL (9-20); Non-African American GFR(CKD) 84 (>60 ml/min/1.73 sqM)
--- NOTE | 2020-12-12 13:19 | CT ---
EXAMINATION TYPE: CT ChestAbdPelvis w con DATE OF EXAM: 12/12/2020 COMPARISON: 08/08/2020, 04/09/2020, 12/07/2019 HISTORY: 75-year-old male C34.32, Lung cancer and prostate cancer TECHNIQUE: Contiguous axial scanning of the chest, abdomen, and pelvis performed with IV Contrast, pa tient injected with 100 mL of Isovue 300. Delayed images through the kidneys were obtained. Coronal/s agittal reconstructions performed. CT DLP: 1655 mGycm Automated exposure control for dose reduction was used. FINDINGS: CHEST: Heart normal size without pericardial effusion. Prominent LAD coronary artery calcifications are pres ent. Mild aneurysm aortic root at 4.0 cm versus 3.8 cm on 04/09/2020. Aneurysm ascending aorta at 4.4 cm, u nchanged. Conventional artery also branching anatomy. Ectatic upper descending thoracic aorta at 3.4 cm. Stable prominent 9 mm precarinal lymph node. No new thoracic lymphadenopathy identified. Very mild upper lung emphysema. Strandy atelectasis or scarring posterior left base. No consolidation or pleural effusion. Postsurgical change of suspected previous left lower lobectomy. Corresponding v olume loss in the left hemithorax. ABDOMEN: A 9 mm hypodense lesion posterior left liver lobe is unchanged from 08/08/2020 and smaller from 021 where it measured 1.3 cm. Punctate 3 mm hypodensity lateral left liver lobe, axial image 51 remai ns unchanged. Otherwise, no focal liver lesions or biliary ductal dilatation. Portal venous system is patent. Gallbladder, adrenal glands, spleen, pancreas within normal limits. A few scattered small renal cortical cysts measuring up to 1.2 cm. Symmetric uptake and excretion of contrast from both kidneys. No dilated small bowel, free fluid, or free air. No mesenteric or retroperitoneal lymphadenopathy. Normal appendix. Moderate stool burden. No pericolonic inflammatory change.. PELVIS: Bladder is urine distended. There appears to be changes of previous prostatectomy. Stranding along th e left external iliac chain likely relating to postsurgical change is stable. Pelvic phleboliths. No abnormal fluid collection in the pelvis or pelvic lymphadenopathy. BONES: Mild degenerative change of the hips. The lower lumbar spine. Grade 1 anterolisthesis L4-L5. No osseo us destructive process seen. IMPRESSION: 1. STATUS POST LEFT LOWER LOBECTOMY AND PROSTATECTOMY. NO SUSPICIOUS LYMPHADENOPATHY OR MASS TO SUGGE ST RECURRENCE OR METASTATIC DISEASE. 2. MILD ANEURYSM ASCENDING AORTA AT 4.4 CM IS UNCHANGED BACK TO AT LEAST 04/09/2020
== END | disposition home or self-care (01) ==
LOC: RADCTMAIN 09:34
PROVIDERS: ATTEND Internal Medicine Hematology & Oncology
DX: C34.32 Malignant neoplasm of lower lobe, left bronchus or lung (principal); C61 Malignant neoplasm of prostate; Z85.118 Personal history of other malignant neoplasm of bronchus and lung; Z85.46 Personal history of malignant neoplasm of prostate; Z90.79 Acquired absence of other genital organ(s)
CPT/HCPCS: 82565; 84520; 71260; 74177; 36415; Q9967

== ENCOUNTER → 2021-02-03 | Outpatient (CLI) | payer MEDICARE ==
[2021-02-03 21:35] LABS: Prostate Specific Antigen <0.01 ng/mL (0.00-6.50)
== END | disposition home or self-care (01) ==
LOC: LABWHC1 13:12
PROVIDERS: ATTEND Urology
DX: C61 Malignant neoplasm of prostate (principal)
CPT/HCPCS: 36415; 84153; 84403

== ENCOUNTER 2021-02-04 09:27 | Day surgery (SDC) | payer MEDICARE ==
[2021-02-03 14:09] VITALS: BMI 25.4
[2021-02-04 09:51] VITALS: TEMP 97.2
--- NOTE | 2021-02-04 10:09 | P.GSHP ---
History of Present Illness H&P Date: 02/04/21 CHIEF COMPLAINT: Colon screen HISTORY OF PRESENT ILLNESS: The patient is a 76-year-old male who presents for colon screen. Lower endoscopy was offered for further evaluation and management. PAST MEDICAL HISTORY: Please see list. PAST SURGICAL HISTORY: Please see list. MEDICATIONS: Please see list. ALLERGIES: Please see list. SOCIAL HISTORY: No illicit drug use FAMILY HISTORY: No reports of Crohn disease or ulcerative colitis. REVIEW OF ORGAN SYSTEMS: CONSTITUTIONAL: No reports of fevers or chills. PHYSICAL EXAM: VITAL SIGNS: Stable GENERAL: Well-developed pleasant in no acute distress. HEENT: No scleral icterus. Extraocular movements grossly intact. Moist buccal mucosa. NECK: Supple without lymphadenopathy. CHEST: Unlabored respirations. Equal bilateral excursions. CARDIOVASCULAR: Regular rate and rhythm. Distal 2+ pulses. ABDOMEN: Soft, nontender, nondistended. MUSCULOSKELETAL: No clubbing, cyanosis, or edema. ASSESSMENT: 1. Colon screen. PLAN: 1. Recommend proceeding with a lower endoscopy Past Medical History Past Medical History: Cancer Additional Past Medical History / Comment(s): Recent blood in stool, hx prostate cancer 01/01, hx left lung cancer 11/02, Aortic Aneurysm. History of Any Multi-Drug Resistant Organisms: None Reported Past Surgical History: Hernia Repair, Prostate Surgery Additional Past Surgical History / Comment(s): Left lower lung lobectomy. Past Anesthesia/Blood Transfusion Reactions: Postoperative Nausea & Vomiting (PONV) Past Psychological History: No Psychological Hx Reported Smoking Status: Former smoker Past Alcohol Use History: None Reported Additional Past Alcohol Use History / Comment(s): STARTED SMOKING AT AGE 20, QUIT AGE 31, SMOKED 2-3 PPD. Past Drug Use History: None Reported - Past Family History Mother Family Medical History: No Reported History Medications and Allergies Home Medications Medication Instructions Recorded Confirmed Type Ascorbic Acid [Vitamin C] 500 mg PO DAILY 12/19/17 02/04/21 History Calcium Carbonate [Calcium] 1,200 mg PO DAILY 07/14/18 02/04/21 History Atorvastatin [Lipitor] 20 mg PO DAILY 02/03/21 02/04/21 History Fiber. 1 tab PO DAILY 02/03/21 02/04/21 History Losartan [Cozaar] 12.5 mg PO HS 02/03/21 02/04/21 History Metoprolol Tartrate [Lopressor] 12.5 mg PO QAM 02/03/21 02/04/21 History Multivit-Min/FA/Lycopen/Lutein 1 each PO DAILY 02/03/21 02/04/21 History [Centrum Silver Tablet] Aspirin 81 mg PO PRN 02/04/21 History Allergies Allergy/AdvReac Type Severity Reaction Status Date / Time No Known Allergies Allergy Verified 02/03/21 14:02 Surgical - Exam Vital Signs Temp Pulse Resp BP Pulse Ox 97.2 F L 65 20 152/61 98 02/04/21 09:50 02/04/21 09:50 02/04/21 09:50 02/04/21 09:50 02/04/21 09:50
[2021-02-04] MEDS ORDERED: ONDANSETRON 4 MG/2 ML VIAL ONE (10:16)
[2021-02-04] MEDS ORDERED: ONDANSETRON 4 MG/2 ML VIAL IVP ONE (10:19)
[2021-02-04] MEDS ORDERED: PROPOFOL 10 MG/ML 20 ML VIAL IV ONE (10:41)
--- NOTE | 2021-02-04 11:08 | P.PCN ---
Date of Procedure: 02/04/21 Description of Procedure: PREOPERATIVE DIAGNOSIS: Personal history of colon polyps Rectal bleeding POSTOPERATIVE DIAGNOSIS: Tubular adenoma cecum Tubular adenoma hepatic flexure Sigmoid diverticulosis Internal hemorrhoids, grade 2 OPERATION: Colonoscopy to the ileocecal valve and appendiceal orifice, cecum Colonoscopy with hot snare polypectomy SURGEON: Preeti Lora MD. ANESTHESIA: MAC. INDICATIONS: The patient is an 76-year-old male who presents with rectal bleeding. Last colonoscopy 5 years. Benefits and risks were described and informed consent was obtained. DESCRIPTION OF PROCEDURE: The patient had undergone Sutab prep. The patient had been brought into the operating room and laid in the left lateral decubitus position. After adequate intravenous sedation, the rectum was examined with 2% lidocaine jelly. The prostate was unremarkable. External hemorrhoids were encountered. The rectal tone was within normal limits. No lesions were palpated in the rectal vault. An Olympus colonoscope was advanced until the cecum, ileocecal valve and appendiceal orifice were clearly viewed. The prep was good. Sigmoid diverticulosis was encountered. Colonic polyps were found and removed. No evidence of focal colitis was found. Retroflexion of the scope demonstrated grade 2 internal hemorrhoids with active bleeding or inflammation. The colon was desufflated. The patient had tolerated the procedure well. Withdrawal time was over 6 minutes. FINDINGS: Aronchick preparation quality scale 1 (1-5) Internal hemorrhoids, grade 2 with recent inflammation and bleeding External hemorrhoids, grade 2. No arteriovenous malformations. Sigmoid diverticulosis Removal of 2 polyps: - Snare polypectomy at cecum, 10 mm tubulovillous adenoma polyp. - Snare polypectomy at hepatic flexure, 4 mm flat villous adenoma polyp. No focal colitis. RECOMMENDATIONS: Given severity of tubular adenomas, recommend repeat colonoscopy 1 year. Plan - Discharge Summary Discharge Rx Participant: No New Discharge Prescriptions: New Hydrocortisone Suppository [Anusol-Hc] 25 mg RECTAL DAILY #20 suppositor Continue Ascorbic Acid [Vitamin C] 500 mg PO DAILY Calcium Carbonate [Calcium] 1,200 mg PO DAILY Metoprolol Tartrate [Lopressor] 12.5 mg PO QAM Losartan [Cozaar] 12.5 mg PO HS Atorvastatin [Lipitor] 20 mg PO DAILY Aspirin 81 mg PO PRN PRN Reason: Headache Fiber. 1 tab PO DAILY Multivit-Min/FA/Lycopen/Lutein [Centrum Silver Tablet] 1 each PO DAILY Discharge Medication List Ascorbic Acid [Vitamin C] 500 mg PO DAILY 12/19/17 [History] Calcium Carbonate [Calcium] 1,200 mg PO DAILY 07/14/18 [History] Atorvastatin [Lipitor] 20 mg PO DAILY 02/03/21 [History] Fiber. 1 tab PO DAILY 02/03/21 [History] Losartan [Cozaar] 12.5 mg PO HS 02/03/21 [History] Metoprolol Tartrate [Lopressor] 12.5 mg PO QAM 02/03/21 [History] Multivit-Min/FA/Lycopen/Lutein [Centrum Silver Tablet] 1 each PO DAILY 02/03/21 [History] Aspirin 81 mg PO PRN 02/04/21 [History] Hydrocortisone Suppository [Anusol-Hc] 25 mg RECTAL DAILY #20 suppositor 02/04/21 [Rx] Follow up Appointment(s)/Referral(s): Preeti Lora MD [STAFF PHYSICIAN] - As Needed Patient Instructions/Handouts: Colorectal Polyps (DC), Diverticulosis Diet (GEN), Diverticulosis (DC), Hemorrhoids (DC) Activity/Diet/Wound Care/Special Instructions: Repeat colonoscopy 3 years, 2023 Discharge Disposition: HOME SELF-CARE
[2021-02-04 11:10] VITALS: RESP 16
[2021-02-04 11:28] VITALS: BP 119/65; PULSE 48
== END 2021-02-04 11:52 | disposition home or self-care (01) ==
LOC: ORWHC2ENDO 09:27
PROVIDERS: ATTEND Surgery Plastic and Reconstructive Surgery
DX: D12.0 Benign neoplasm of cecum (principal); K57.30 Diverticulosis of large intestine without perforation or abscess without bleeding; K64.8 Other hemorrhoids
CPT/HCPCS: 45385; 88305; J2405; J2704

== ENCOUNTER → 2021-06-12 | Outpatient (CLI) | payer MEDICARE ==
--- NOTE | 2021-06-12 11:32 | CT ---
EXAMINATION TYPE: CT ChestAbdPelvis w con DATE OF EXAM: 06/12/2021 COMPARISON: Prior CT December 12, [address] 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 Progress study. CT DLP: 915.2 mGycm. Automated Exposure Control for Dose Reduction was Utilized. CONTRAST: CT scan of the thorax, abdomen and pelvis is performed with oral and with IV Contrast, patient inject ed with 100 mL of Isovue M300. FINDINGS: LUNGS: There is left lung partial pneumonectomy changes with surgical sutures left hilar region and l eft-sided volume loss along with posterior left basilar linear scarring are redemonstrated. No new gr eater than 5 mm nodules or masses. Slight hyperexpansion to right lung is redemonstrated. MEDIASTINUM: There are no new greater than 1 cm hilar or mediastinal lymph nodes. Surgical clips left hilar level noted. No cardiomegaly or pericardial effusion is seen. Coronary artery calcification is redemonstrated. Ascending aorta measures up to 4 4.3 cm in diameter axial image 28. No significant change from prior. LIVER/GB: Roughly 1.0 cm hypodense lesion left hepatic lobe presumed benign simple thin-walled cyst a xial image 53 is stable. PANCREAS: No significant abnormality is seen. SPLEEN: No significant abnormality is seen. ADRENALS: No new adrenal masses. KIDNEYS: Symmetric cortical medullary uptake and excretion without hydronephrosis seen bilaterally. O ccasional benign subcentimeter thin-walled cysts throughout both kidneys redemonstrated. BOWEL: Oral contrast reaches level of the distal left colon. No suspicious small or large bowel dilat ation is seen. Normal contrast-filled appendix is present. GENITAL ORGANS: Prostate is not visualized and suspected surgically absent. Scattered tiny pelvic phl eboliths redemonstrated. LYMPH NODES: No new greater than 1cm abdominal or pelvic lymph nodes are appreciated. OSSEOUS STRUCTURES: Slight grade 1 retrolisthesis L5 on S1 and grade 1 anterolisthesis L4 on L5 redem onstrated. Moderate disc space narrowing L5-S1 level. OTHER: Mild calcified plaque of the aorta extends into branch vessels. IMPRESSION: No new suspicious mass or adenopathy to suggest neoplastic recurrence. No significant desiree nge from most recent prior CT.
== END | disposition home or self-care (01) ==
LOC: RADCTMAIN 08:28
PROVIDERS: ATTEND Internal Medicine Hematology & Oncology
DX: C34.32 Malignant neoplasm of lower lobe, left bronchus or lung (principal)
CPT/HCPCS: 82565; 84520; 71260; 74177; 36415; Q9967

== ENCOUNTER → 2021-08-05 | Outpatient (CLI) | payer MEDICARE ==
[2021-08-06 00:27] LABS: Prostate Specific Antigen <0.01 ng/mL (0.00-6.50)
== END | disposition home or self-care (01) ==
LOC: LABWHC1 14:48
PROVIDERS: ATTEND Urology
DX: C61 Malignant neoplasm of prostate (principal)
CPT/HCPCS: 36415; 84153; 84403

== ENCOUNTER → 2021-11-12 | Outpatient (CLI) | payer MEDICARE ==
[2021-11-12 18:52] LABS: Prostate Specific Antigen <0.01 ng/mL (0.00-6.50)
== END | disposition home or self-care (01) ==
LOC: LABWHC1 11:14
PROVIDERS: ATTEND Urology
DX: C61 Malignant neoplasm of prostate (principal)
CPT/HCPCS: 36415; 84153; 84403

== ENCOUNTER → 2021-12-11 | Outpatient (CLI) | payer MEDICARE ==
[2021-12-11 10:35] LABS: African American GFR (CKD) >90 (>60 ml/min/1.73 sqM); Blood Urea Nitrogen 17 mg/dL (9-20); Non-African American GFR(CKD) 79 (>60 ml/min/1.73 sqM)
--- NOTE | 2021-12-11 12:18 | CT ---
EXAMINATION TYPE: CT ChestAbdPelvis w con CT DLP: 1625 mGycm, Automated exposure control for dose reduction was used. DATE OF EXAM: 12/11/2021 11:21 AM COMPARISON: CT 06/12/2021. CLINICAL INDICATION:Male, 76 years old with history of LUNG CANCER C34.32, Lung Cancer Technique: Multiple axial images of the chest, abdomen, and pelvis were obtained. Two-dimensional cor onal and sagittal reconstructions were obtained. Contrast used:70 ml mL of Isovue 300 with IV Contrast, Oral contrast used: with Oral Contrast Findings: CHEST: LUNGS/ PLEURA: Postsurgical changes to the left lung with some volume loss and leftward shift of the mediastinum. Similar morphology to atelectasis/scarring in the left lung base. No suspicious mass. No focal consolidation, pneumothorax or pleural effusion. AIRWAY: Patent and unremarkable. HEART: The heart is mildly enlarged for size. Mild coronary artery atherosclerosis. MEDIASTINUM: No gross evidence of adenopathy. VASCULATURE: No aortic aneurysm. 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 MUSCULOSKELETAL: No acute osseous abnormalities. SOFT TISSUES/LYMPH NODES: Unremarkable. LOWER NECK: No significant findings. ABDOMEN: ABDOMEN LIVER: Unremarkable GALLBLADDER AND BILE DUCTS: Unremarkable. PANCREAS: Unremarkable. SPLEEN: Unremarkable. ADRENAL GLANDS: Unremarkable. KIDNEYS AND URETERS: No evidence of hydronephrosis or renal calculus. Bilateral probable renal cysts. PELVIS BLADDER: The bladder is distended. No evidence of wall thickening. REPRODUCTIVE: Prostate gland is not definitively visualized may be surgically absent. ABDOMEN & PELVIS STOMACH AND BOWEL: No evidence of bowel obstruction. Appendix is normal. PERITONEUM: No evidence of pneumoperitoneum or free fluid. VASCULATURE: No evidence of aortic aneurysm. MUSCULOSKELETAL: No acute osseous abnormalities LYMPH NODES: No gross evidence for lymphadenopathy. SOFT TISSUE/ABDOMINAL WALL: Unremarkable IMPRESSION: 1. No new suspicious mass or adenopathy to suggest recurrence. No significant change from most prior CT. 2. Similar mild ascending thoracic aorta ectasia up to 4.2 cm. 3. Similar mild cardiomegaly.
== END | disposition home or self-care (01) ==
LOC: RADCTMAIN 09:27
PROVIDERS: ATTEND Internal Medicine Hematology & Oncology
DX: C34.32 Malignant neoplasm of lower lobe, left bronchus or lung (principal); I77.810 Thoracic aortic ectasia; I51.7 Cardiomegaly
CPT/HCPCS: 82565; 84520; 71260; 74177; 36415; Q9967

== ENCOUNTER 2022-02-17 09:28 | Day surgery (SDC) | payer MEDICARE ==
[2022-02-16 11:13] VITALS: BMI 24.7
--- NOTE | 2022-02-17 09:06 | P.GSHP ---
History of Present Illness H&P Date: 02/17/22 CHIEF COMPLAINT: Colon screen HISTORY OF PRESENT ILLNESS: The patient is a 77-year-old male who presents for colon screen. Lower endoscopy was offered for further evaluation and management. PAST MEDICAL HISTORY: Please see list. PAST SURGICAL HISTORY: Please see list. MEDICATIONS: Please see list. ALLERGIES: Please see list. SOCIAL HISTORY: No illicit drug use FAMILY HISTORY: No reports of Crohn disease or ulcerative colitis. REVIEW OF ORGAN SYSTEMS: CONSTITUTIONAL: No reports of fevers or chills. PHYSICAL EXAM: VITAL SIGNS: Stable GENERAL: Well-developed pleasant in no acute distress. HEENT: No scleral icterus. Extraocular movements grossly intact. Moist buccal mucosa. NECK: Supple without lymphadenopathy. CHEST: Unlabored respirations. Equal bilateral excursions. CARDIOVASCULAR: Regular rate and rhythm. Distal 2+ pulses. ABDOMEN: Soft, nontender, nondistended. MUSCULOSKELETAL: No clubbing, cyanosis, or edema. ASSESSMENT: 1. Colon screen. PLAN: 1. 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 History of Any Multi-Drug Resistant Organisms: None Reported Past Surgical History: Hernia Repair, Prostate Surgery Additional Past Surgical History / Comment(s): prostatectomy,lt lung lower lobectomy,colonoscopy w/ polypectomy Past Anesthesia/Blood Transfusion Reactions: Postoperative Nausea & Vomiting (PONV) Additional Past Anesthesia/Blood Transfusion Reaction / Comment(s): no hx blood transfusion Smoking Status: Former smoker - Past Family History Mother Family Medical History: No Reported History Medications and Allergies Home Medications Medication Instructions Recorded Confirmed Type Ascorbic Acid [Vitamin C] 500 mg PO DAILY 12/19/17 02/16/22 History Calcium Carbonate [Calcium] 1,200 mg PO DAILY 07/14/18 02/16/22 History Atorvastatin [Lipitor] 20 mg PO DAILY 02/03/21 02/16/22 History Fiber. 1 tab PO DAILY 02/03/21 02/16/22 History Losartan [Cozaar] 12.5 mg PO HS 02/03/21 02/16/22 History Metoprolol Tartrate [Lopressor] 12.5 mg PO QAM 02/03/21 02/16/22 History Multivit-Min/FA/Lycopen/Lutein 1 each PO DAILY 02/03/21 02/16/22 History [Centrum Silver Tablet] Allergies Allergy/AdvReac Type Severity Reaction Status Date / Time No Known Allergies Allergy Verified 02/16/22 10:41
[~2022-02-17 09:28] MED LIST changes: +LIDOCAINE 1% (10MG/ML) FOR IV START INTRADERMA PRN
[2022-02-17 09:48] VITALS: TEMP 97.4
[2022-02-17] MEDS ORDERED: ONDANSETRON 4 MG/2 ML VIAL ONE (10:03)
[2022-02-17] MEDS ORDERED: ONDANSETRON 4 MG/2 ML VIAL IVP ONE (10:21)
[2022-02-17] MEDS ORDERED: PROPOFOL 10 MG/ML 20 ML VIAL IV ONE (10:51)
[2022-02-17 11:19] VITALS: RESP 16
--- NOTE | 2022-02-17 11:20 | P.PCN ---
Date of Procedure: 02/17/22 Description of Procedure: PREOPERATIVE DIAGNOSIS: Personal history colon polyps POSTOPERATIVE DIAGNOSIS: Personal history colon polyps OPERATION: Colonoscopy to the cecum, ileocecal valve and appendiceal orifice. SURGEON: Preeti Lora MD. ANESTHESIA: MAC. INDICATIONS: The patient is a 77-year-old male who presents for colonoscopy surveillance. Last colonoscopy 5 years ago. Benefits and risks were described and informed consent was obtained. DESCRIPTION OF PROCEDURE: The patient had undergone Sutab prep. The patient had been brought into the operating room and laid in the left lateral decubitus position. After adequate intravenous sedation, the rectum was examined with 2% lidocaine jelly. The prostate fossa was unremarkable. No external hemorrhoids were encountered. The rectal tone was within normal limits. No lesions were palpated in the rectal vault. An Olympus colonoscope was advanced until the cecum, ileocecal valve and appendiceal orifice were clearly viewed. The prep was excellent. No scattered diverticulosis was encountered. No colonic polyps were found. No evidence of focal colitis was found. Retroflexion of the scope demonstrated grade 1 internal hemorrhoids without active bleeding or inflammation. The colon was desufflated. The patient had tolerated the procedure well. Withdrawal time was over 6 minutes. FINDINGS: Aronchick preparation quality scale 1 (1-5) Internal hemorrhoids, grade 1 No external prolapsed hemorrhoids. No arteriovenous malformations. No adenomatous polyps. No focal colitis. No sigmoid diverticulosis. RECOMMENDATIONS: Lower endoscopy in 5 years, 2027 due to pre-existing history of polyps Plan - Discharge Summary Discharge Rx Participant: No New Discharge Prescriptions: Continue Ascorbic Acid [Vitamin C] 500 mg PO DAILY Calcium Carbonate [Calcium] 1,200 mg PO DAILY Metoprolol Tartrate [Lopressor] 12.5 mg PO QAM Losartan [Cozaar] 12.5 mg PO HS Atorvastatin [Lipitor] 20 mg PO DAILY Fiber. 1 tab PO DAILY Multivit-Min/FA/Lycopen/Lutein [Centrum Silver Tablet] 1 each PO DAILY Discharge Medication List Ascorbic Acid [Vitamin C] 500 mg PO DAILY 12/19/17 [History] Calcium Carbonate [Calcium] 1,200 mg PO DAILY 07/14/18 [History] Atorvastatin [Lipitor] 20 mg PO DAILY 02/03/21 [History] Fiber. 1 tab PO DAILY 02/03/21 [History] Losartan [Cozaar] 12.5 mg PO HS 02/03/21 [History] Metoprolol Tartrate [Lopressor] 12.5 mg PO QAM 02/03/21 [History] Multivit-Min/FA/Lycopen/Lutein [Centrum Silver Tablet] 1 each PO DAILY 02/03/21 [History] Follow up Appointment(s)/Referral(s): Preeti Lora MD [STAFF PHYSICIAN] - As Needed Patient Instructions/Handouts: *Surgery [facility] - (Anesthesia) Endoscopy Discharge Instructions, Colonoscopy (GEN) Activity/Diet/Wound Care/Special Instructions: Repeat colonoscopy 5 years, 2027 Discharge Disposition: HOME SELF-CARE
[2022-02-17 11:32] VITALS: BP 109/65; PULSE 58
== END 2022-02-17 12:00 | disposition home or self-care (01) ==
LOC: ORWHC2ENDO 09:28
PROVIDERS: ATTEND Surgery Plastic and Reconstructive Surgery
DX: Z86.010 Personal history of colon polyps (principal); Z12.11 Encounter for screening for malignant neoplasm of colon; Z85.46 Personal history of malignant neoplasm of prostate; Z87.19 Personal history of other diseases of the digestive system; Z87.891 Personal history of nicotine dependence; Z90.49 Acquired absence of other specified parts of digestive tract
CPT/HCPCS: J2405; J2704; G0105; 45378

== ENCOUNTER → 2022-06-11 | Outpatient (CLI) | payer MEDICARE ==
[2022-06-11 10:19] LABS: African American GFR (CKD) >90 (>60 ml/min/1.73 sqM); Blood Urea Nitrogen 17 mg/dL (9-20); Non-African American GFR(CKD) 81 (>60 ml/min/1.73 sqM)
--- NOTE | 2022-06-11 13:29 | CT ---
EXAMINATION TYPE: CT ChestAbdPelvis w con DATE OF EXAM: 06/11/2022 COMPARISON: 12/03/2021 HISTORY: f/u lung and prostate ca CT DLP: 1736 mGycm Automated exposure control for dose reduction was used. CONTRAST: CT scan of the chest, abdomen and pelvis is performed with Oral Contrast and with IV Contrast, patien t injected with 100 mL of Isovue 300. FINDINGS: Chest CT: There are postsurgical changes of partial left lung resection with volume loss and mild shift of medi astinum to the left. No suspicious lung masses or nodules. There is no airspace consolidation. There is no pleural effusion or pneumothorax is mild aneurysmal dilatation of ascending thoracic aorta jaelyn uring approximately 4.2 to 4.3 cm. No focal lytic or blastic osseous abnormalities are seen within the bony thorax. CT abdomen and pelvis: The gallbladder is normal. There is a stable small hepatic cysts with no suspicious masses within the liver, pancreas, spleen or adrenal glands. The kidneys excrete contrast promptly and symmetrically and no solid renal mass or hydronephrosis. Th ere is no retroperitoneal adenopathy or hemorrhage in the caliber the abdominal aorta is normal. The bowel loops normal in caliber and there is no dilatation or obstruction. No inflammatory changes are identified in the bowel wall or mesentery and there is no free intraperitoneal air or fluid. There is no pelvic mass, free fluid, abscess or adenopathy. There are surgical absence of the prostat e gland. The osseous structures of the pelvis and abdomen are intact without lytic or blastic osseous abnormal ity. IMPRESSION: 1. No evidence of recurrent or metastatic disease. 2. Postsurgical changes. Above. 3. No interval change compared to the prior study.
== END | disposition home or self-care (01) ==
LOC: RADCTMAIN 09:29
PROVIDERS: ATTEND Internal Medicine Hematology & Oncology
DX: Z03.89 Encounter for observation for other suspected diseases and conditions ruled out (principal); C34.32 Malignant neoplasm of lower lobe, left bronchus or lung; C61 Malignant neoplasm of prostate; Z98.890 Other specified postprocedural states
CPT/HCPCS: 84153; 82565; 84520; 71260; 74177; 36415; Q9967

== ENCOUNTER → 2022-12-10 | Outpatient (CLI) | payer MEDICARE | END | disposition home or self-care (01) | LOC: LABWHC1 09:05 | PROVIDERS: ATTEND Urology | DX: C61 Malignant neoplasm of prostate (principal) | CPT/HCPCS: 36415; 84153; 84403 ==

== ENCOUNTER → 2022-12-10 | Outpatient (CLI) | payer MEDICARE ==
[2022-12-10 10:30] LABS: African American GFR (CKD) >90 (>60 ml/min/1.73 sqM); Blood Urea Nitrogen 20 mg/dL (9-20); Non-African American GFR(CKD) 80 (>60 ml/min/1.73 sqM)
--- NOTE | 2022-12-10 12:05 | CT ---
EXAMINATION TYPE: CT ChestAbdPelvis w con DATE OF EXAM: 12/10/2022 COMPARISON: Multiple previous with the most recent from 06/11/2022. HISTORY: Lung ca CT DLP: 1420 mGycm Automated exposure control for dose reduction was used. CONTRAST: CT scan of the chest, abdomen and pelvis is performed with Oral Contrast and with IV Contrast, patien t injected with 100 mL of Isovue 300. FINDINGS: CHEST: Mediastinum and Olivia: There is no axillary, mediastinal or hilar lymphadenopathy. Pleural and Pericardial spaces: There are no pleural or pericardial effusions. Cardiovascular: The thoracic aorta is normal in size without evidence of aneurysm or dissection. Ther e is some mild patchy coronary artery calcifications. Pulmonary Artery: There are no central pulmonary arterial filling defects. Lung Parenchyma and Airways: Unchanged postsurgical changes of left lower lobectomy. The lungs otherw ise appear clear. ABDOMEN: Liver and Biliary system: There are a few subcentimeter hypodensities within the left lobe of the li ofelia which are too small fully characterize and unchanged. No suspicious liver lesions are otherwise s een.. Adrenal glands: Normal. Kidneys and ureters: Normal. Spleen: Subcentimeter hypodensity in the spleen is too small to fully characterize and unchanged.. Pancreas: Normal. Gallbladder: Normal. Lymph nodes, Peritoneum and mesentery: There is no mesenteric or retroperitoneal lymphadenopathy. Gastrointestinal tract: There are no dilated loops of bowel or free intraperitoneal air. . The appe ndix is normal. Aorta/IVC: There is mild vascular calcification within the abdominal aorta without evidence of aneu rysmal dilation or dissection.. IVC normal. Abdominal wall: Normal. PELVIS: Fluid: There is no free fluid in the pelvis. Lymph Nodes: There is no pelvic or inguinal lymphadenopathy.. Urinary bladder: Normal. BONES: There are no osseous destructive lesions.. ADDITIONAL SIGNIFICANT FINDINGS: None. IMPRESSION: 1. No definitive evidence of recurrent or metastatic disease within the chest, abdomen or pelvis. 2. Additional stone changes noted above.
== END | disposition home or self-care (01) ==
LOC: RADCTMAIN 09:07
PROVIDERS: ATTEND Internal Medicine Hematology & Oncology
DX: C34.32 Malignant neoplasm of lower lobe, left bronchus or lung (principal); I70.0 Atherosclerosis of aorta
CPT/HCPCS: 82565; 84520; 71260; 74177; 36415; Q9967

== ENCOUNTER → 2023-06-10 | Outpatient (CLI) | payer MEDICARE ==
[2023-06-10 10:18] LABS: African American GFR (CKD) 81 (>60 ml/min/1.73 sqM); Blood Urea Nitrogen 19 mg/dL (9-20); Non-African American GFR(CKD) 70 (>60 ml/min/1.73 sqM)
--- NOTE | 2023-06-15 15:21 | CT ---
EXAMINATION TYPE: CT chest, abdomen and pelvis with contrast CT DLP: 1427 mGycm, Automated exposure control for dose reduction was used. DATE OF EXAM: 06/10/2023 11:33 AM COMPARISON: 12/10/2022 CLINICAL INDICATION:Male, 78 years old with history of C34.32 lung ca; PHH, h/o lung/ prostate CA, h/ o aneurysm of aortic root f/u Technique: CT Chest Abd Pelvis w con; Multiple axial images were obtained. Two-dimensional coronal an d sagittal reconstructions were obtained. Contrast used:100 mL of Isovue 300 with IV Contrast, Oral contrast used: without Oral Contrast Findings: CHEST: LUNGS/ PLEURA: The lung parenchyma appears unremarkable. AIRWAY: Patent and unremarkable. HEART: Size within normal limits. MEDIASTINUM: No gross evidence of adenopathy. VASCULATURE: The aortic root measures 4.3 cm in diameter (ectatic). Stable compared to 12/10/2022 MUSCULOSKELETAL: No acute osseous abnormalities. SOFT TISSUES/LYMPH NODES: Unremarkable. LOWER NECK: No significant findings. ABDOMEN: ABDOMEN LIVER: Single, small hypodensity in the liver are stable. GALLBLADDER AND BILE DUCTS: Unremarkable. PANCREAS: Unremarkable. SPLEEN: Unremarkable. ADRENAL GLANDS: Unremarkable. KIDNEYS AND URETERS: No evidence of hydronephrosis or renal calculus. The ureters are unremarkable. Small benign-appearing kidney cysts require no follow-up PELVIS BLADDER: Unremarkable REPRODUCTIVE: Unremarkable. ABDOMEN & PELVIS STOMACH AND BOWEL: Stomach and duodenum are unremarkable. No evidence of bowel obstruction. PERITONEUM: No evidence of pneumoperitoneum or free fluid. VASCULATURE: No evidence of aortic aneurysm. MUSCULOSKELETAL: No acute osseous abnormalities LYMPH NODES: No gross evidence for lymphadenopathy. 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 No evidence of metastatic disease.
== END | disposition home or self-care (01) ==
LOC: RADCTMAIN 09:27
PROVIDERS: ATTEND Internal Medicine Hematology & Oncology
DX: I77.810 Thoracic aortic ectasia (principal); C34.32 Malignant neoplasm of lower lobe, left bronchus or lung; C61 Malignant neoplasm of prostate
CPT/HCPCS: 84153; 82565; 84520; 71260; 74177; 36415; Q9967

== ENCOUNTER → 2023-12-09 | Outpatient (CLI) | payer MEDICARE ==
[2023-12-09 10:56] LABS: African American GFR (CKD) 80 (>60 ml/min/1.73 sqM); Blood Urea Nitrogen 18 mg/dL (9-20); Non-African American GFR(CKD) 69 (>60 ml/min/1.73 sqM)
--- NOTE | 2023-12-09 14:55 | CT ---
EXAMINATION TYPE: CT ChestAbdPelvis w con CT DLP: 1208.50 mGycm, Automated exposure control for dose reduction was used. DATE OF EXAM: 12/09/2023 11:42 AM COMPARISON: Multiple CT chest abdomen pelvis with most recent 06/10/2023 CLINICAL INDICATION:Male, 78 years old with history of C34.32 LUNG CANCER; PHH, LUNG CANCER. obs for mets. Technique: Multiple axial images of the chest, abdomen, and pelvis were obtained following the intrav enous administration of 100 mL Isovue-300. Two-dimensional coronal and sagittal reconstructions were obtained. Findings: CHEST: LUNGS/ PLEURA: Postsurgical changes to the left lung with some volume loss and leftward shift of the mediastinum. Similar morphology to atelectasis/scarring in the left lung base. No suspicious mass. No focal consolidation, pneumothorax or pleural effusion. AIRWAY: Patent and unremarkable. HEART: The heart is mildly enlarged for size. Mild coronary artery atherosclerosis. MEDIASTINUM: No evidence of adenopathy. VASCULATURE: Conventional 3 vessel aortic arch. Stable aneurysm dilatation of the ascending thoracic aorta measuring up to 4.3 cm. No evidence for dissection. MUSCULOSKELETAL: No acute osseous abnormalities. No aggressive osseous lesion. SOFT TISSUES/LYMPH NODES: Unremarkable. LOWER NECK: No significant findings. ABDOMEN: ABDOMEN LIVER: Unremarkable GALLBLADDER AND BILE DUCTS: Unremarkable. PANCREAS: Unremarkable. SPLEEN: Unremarkable. ADRENAL GLANDS: Unremarkable. KIDNEYS AND URETERS: No evidence of hydronephrosis or renal calculus. Bilateral stable small renal cy sts. Contrast is demonstrated within both collecting systems on delayed phase. The kidneys enhance sy mmetrically. PELVIS BLADDER: The urinary bladder is mildly distended. No evidence of wall thickening. REPRODUCTIVE: Prostate gland is not definitively visualized and appears surgically absent. ABDOMEN & PELVIS STOMACH AND BOWEL: No evidence of bowel obstruction. Appendix is normal. Enteric contrast reaches th e mid small bowel. No focal bowel wall thickening or surrounding inflammatory changes. No diverticulo sis. Mild convex tumor. PERITONEUM: No evidence of pneumoperitoneum or free fluid. VASCULATURE: Mild atherosclerotic calcifications are present throughout the abdominal aorta and its b ranches. No abdominal aortic aneurysm. MUSCULOSKELETAL: No acute osseous abnormalities. No aggressive osseous lesion. Minimal grade 1 octavia listhesis of L4 on L5 without evidence of pars defects. LYMPH NODES: No gross evidence for lymphadenopathy. SOFT TISSUE/ABDOMINAL WALL: Unremarkable IMPRESSION: 1. No new suspicious mass or adenopathy to suggest recurrence. No significant change from most prior CT. No evidence for metastasis. 2. Stable mild ascending thoracic aortic aneurysm measuring up to 4.3 cm [facility], , 12/09/2023 2:53 PM
[2023-12-09 17:18] LABS: Prostate Specific Antigen <0.01 ng/mL (0.000-6.500)
== END | disposition home or self-care (01) ==
LOC: RADCTMAIN 09:26
PROVIDERS: ATTEND Internal Medicine Hematology & Oncology
CPT/HCPCS: 36415; 71260; 74177; 82565; 84153; 84520